=== PATIENT | male | born 1950 | race Caucasian/White ===

== ENCOUNTER → 2020-02-05 | Outpatient (CLI) | payer MEDICARE, BC ==
--- NOTE | 2020-02-05 17:03 | RAD ---
Right ELBOW AP LATERAL Clinical Indication: Reason: RIGHT ELBOW PAIN / Spl. Instructions: / History: Comparison: None. Findings: Sensitivity decreased without third view. There is no acute fracture or dislocation. No evidence of joint effusion. Mild degenerative changes. The mineralization is normal. There is no radiopaque foreign body. The soft tissues are normal. IMPRESSION: No acute fracture or dislocation. Electronically signed by: Haroon Diaz MD (02/05/2020 5:00 PM) [id number]
--- NOTE | 2020-02-05 17:07 | RAD ---
2 view study of both knees and AP standing view of both knees Clinical indications: Bilateral knee pain. Right knee: No acute fracture or dislocation or lytic process is seen. The patella is normally aligned. There is severe joint space narrowing and loss of joint space of the lateral aspect of the patellofemoral joint compartment. There is mild degenerative spurring of the medial and lateral tibiofemoral joint compartments. Mild joint space narrowing of the medial tibial femoral joint compartment is seen. 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 Left left knee: There is mild degenerative spurring and joint space narrowing of the medial tibiofemoral joint compartment of the left knee. Mild degenerative spurring without joint space narrowing of the lateral tibiofemoral joint compartment of the left knee is seen. The patella is normally aligned. There is severe joint space narrowing of the lateral aspect of the patellofemoral joint compartment with loss of joint space here. No acute fracture or dislocation or lytic process evident. 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 No significant knee joint effusion is seen. No calcification of the suprapatellar recess is evident. Electronically signed by: Kevin Murphy MD (02/05/2020 5:04 PM) [id number]
== END | disposition home or self-care (01) ==
LOC: DXRAD 12:36
PROVIDERS: ATTEND Orthopaedic Surgery
DX: M17.0 Bilateral primary osteoarthritis of knee (principal); M19.021 Primary osteoarthritis, right elbow; I77.89 Other specified disorders of arteries and arterioles
CPT/HCPCS: 73070; 73560; 73565